=== PATIENT | male | born 1965 | race Two or more races ===

== ENCOUNTER 2019-05-07 06:31 | Emergency (ER) | payer OTHER ==
[~2019-05-07] VITALS: Ht 190.5 cm; Wt 140.6 kg
[2019-05-07] MEDS ORDERED: ASA81 MG (06:45)
[2019-05-07] MEDS ORDERED: TOPROL XL50 M1 (06:45)
[2019-05-07] MEDS ORDERED: HUMULIN 70100 UNIT/2 ×2 (06:46→06:47)
[2019-05-07] MEDS ORDERED: FOSINOPRIL SODI20 MG (06:48)
== END 2019-05-07 11:23 | disposition home or self-care (01) ==
LOC: ER 06:31
DX: I16.0 Hypertensive urgency (principal); I10 Essential (primary) hypertension; F06.4 Anxiety disorder due to known physiological condition